=== PATIENT | female | born 1955 ===

== ENCOUNTER 2022-03-13 07:42 | Day surgery (SDC) | payer OTHER ==
[2022-03-13] MEDS ORDERED: MACROBID 100 M100 MG PO (10:25)
[2022-03-13] MEDS ORDERED: ULTRACET PO (10:25)
== END 2022-03-13 13:00 | disposition home or self-care (01) ==
LOC: CIR.AMB 07:42
PROVIDERS: ATTEND Obstetrics & Gynecology Gynecology
DX: N81.11 Cystocele, midline (principal); N81.6 Rectocele; N81.5 Vaginal enterocele; F41.9 Anxiety disorder, unspecified